=== PATIENT | male | born 1935 | race Caucasian/White ===

== ENCOUNTER 2021-07-28 08:42 | Day surgery (SDC) | payer OTHER, MEDICARE ==
[2021-07-23 17:29] LABS: Protime INR 1.02
[2021-07-23 17:31] LABS: Absolute Lymphocytes (CBC) 1.5 K/uL (0.7-4.9); Hematocrit 43.4 % (39.6-49.0); Lymphocytes % 18.7 % (15.3-44.8); RBC Red Blood Cell Count 4.77 M/uL (4.33-5.43)
--- NOTE | 2021-07-23 17:34 | RAD REPORT ---
EXAM DESCRIPTION: RAD - Chest Pa And Lat (2 Views) - 07/23/2021 5:23 pm CLINICAL HISTORY: PREOP, patient pending prostate surgery COMPARISON: None TECHNIQUE: Frontal and lateral views of the chest were obtained. FINDINGS: The lungs are underinflated. Interstitial markings are prominent with the baseline unknown . In the absence of acute respiratory symptoms this is most likely fibrosis. No significant failure o r volume overload suspected. Heart size is normal and central vasculature is within normal limits. No pleural effusion or pneu mothorax seen. No acute bony finding noted. Degenerative changes are present in the spine. Degenerat paz changes are present at the anterior margin of the right first rib. No aortic abnormality. IMPRESSION: No acute failure findings. No focal mass or consolidation. Shallow inspiration exam with prominent interstitial pattern. This is a baseline study and no acute r espiratory symptoms were detailed. 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
[2021-07-23 17:42] LABS: Potassium 3.8 mmol/L (3.5-5.1)
--- NOTE | 2021-07-24 10:05 | EKG ---
Test Date: 2021-07-23 Test Time: 16:56:53 Peeler Operator: JAKUB MEASUREMENT RESULTS: Intervals: Rate: 53 ND: 276 QRSD: 94 QT: 436 QTc: 409 Hodgen: P: 64 ND: 276 QRS: -10 T: -2 INTERPRETIVE STATEMENTS: Sinus bradycardia with 1st degree AV block Inferior infarct, age undetermined Abnormal ECG Compared to ECG 09/10/2019 15:53:22 Myocardial infarct finding now present Sinus arrhythmia no longer present Electronically Signed On 07-24-21 10:04:24 TERADATA DEVELOPER by Arik Shin
[~2021-07-28 08:42] MED LIST: AMPICILLIN SODIUM 2 GM in NA CHLORIDE 0.9% 100 ML IVPB SCH; Gentamicin Inj 160 MG in NA CHLORIDE 0.9% 100 ML IV SCH
[2021-07-28] MEDS ORDERED: Ringers Lactate 1,000 ML IV ONE (09:06)
[2021-07-28] MEDS ORDERED: FENTANYL CITR 100 MCG/2 ML ONE (10:15)
[2021-07-28] MEDS ORDERED: propofoL 200 MG/20 ML VIAL IV ONE (10:15)
[2021-07-28] MEDS ORDERED: ONDANSETRON 4 MG/2 ML VIAL ONE (10:15)
[2021-07-28] MEDS ORDERED: LIDOCAINE 1% MPF 5 ML VIAL ONE (10:16)
[2021-07-28] MEDS ORDERED: GLYCOPYRROLATE 0.2 MG/ML SYR ONE (10:58)
[2021-07-28] MEDS ORDERED: EPHEDRINE SULF 50 MG/ML VIAL ONE (10:58)
--- NOTE | 2021-07-28 13:26 | OP ---
Date of Procedure: 07/28/2021 Surgeon: KYAW OLIVARES Preoperative Diagnosis: Benign prostatic hypertrophy with urinary retention. Postoperative Diagnosis: Benign prostatic hypertrophy with urinary retention. Principal Procedure: Cystoscopy with transurethral resection of the prostate using the bipolar devic e. Indication For Procedure: Mr. Santillan is an 86-year-old gentleman with hypothyroidism, hypertension a nd BPH with lower urinary tract obstructive symptoms causing urinary retention requiring catheter margarito cement. He underwent urodynamics evaluation 06/16/2021 revealing detrusor instability with normal se nsation and mild dis-coordination associated with adequate detrusor contractility, but poor flow and cystoscopy revealing lateral lobar hypertrophy with elevated median bar and mild intravesical project ion. As a result, I counseled the patient on the weakness of his detrusor contractility and the pote ntial for dis-coordination of voiding with the striated sphincter, but to give him an opportunity to void, a transurethral resection of the prostate was as best opportunity. We also discussed potential ly adding finasteride, but that would take 6 months to 2 years and only had about a 55% to 65% chance of success. They elected to proceed with surgical therapy. The patient was consented in the preoperative holding area before being transferred to the operative suite where general anesthesia was induced. He was given ampicillin and gentamicin IV antimicrobial prophylaxis. Pneumo boots were provided for DVT prophylaxis. He was placed in the lithotomy positio n, padded and secured to the table appropriately. His genitalia were prepped using Hibiclens and he was draped in standard fashion. The case was begun using a 26-Egyptian Olympus bipolar resectoscope se t and a visual obturator to traverse the urethra and into the bladder. The bladder neck was noted to be significantly elevated with intravesical projection of the median lobe. As a result, I began by resecting the elevated median bar and any intravesically projecting component of the median lobe unti l it was even with the level of the bladder neck. I then continued the resection of the remainder of the median bar all the way down to the level of the verumontanum until a smooth trough had been crea penny. Once this was done, I continued the resection to include the left lateral lobe, initially start ing at the bladder neck and extending that resection to the midportion of the lateral lobar hypertrop hy toward the apex. I then continued the similar resection starting at the bladder neck on the right side. Eventually, with a nice open channel created from the mid prostate through the bladder neck, I then continued the resection to involve any apical overlapping hypertrophy of tissue proximal to th e verumontanum. Once that tissue was resected until the apical lobes were no longer touching, I then continued to smooth the resection and removed any and all excess tissue to create a nice smooth reynolds ritesh from the apex through to the bladder. Once done, all prostate chips were Ellik evacuated and rem radha, and a careful search for bleeding was undertaken. Any bleeding vessels were carefully fulgurat ed using the bipolar electrode, and with his bladder completely decompressed, fulguration of any oozi ng vessels was performed. Once completely hemostatic, I again reassessed the resection and ensured a nice smooth and wide-open trough, and once confirmed, with the bladder decompressed and no prostate chips left within, I fulgurated any residual oozing vessels before leaving the bladder full and remov ing the resectoscope. I then placed a 24-Egyptian 3-way White catheter into his bladder using a cathet er guide due to the elevation of the bladder neck, and placed 50 cc of sterile water in the balloon. The returning efflux was clear, and I started him on slow drip CBI with clear efflux of fluid. The patient was then taken out of the lithotomy position, awakened from general anesthesia, transferred t o a stretcher, and then transferred to the recovery room in good condition. Complications: None. Discharge Disposition: He should follow up in the [facility] on Tuesday for a voiding trial. Tania sue he have difficulty voiding, and a coude-tipped catheter should be reinserted, preferably 18 or 20-Egyptian. WR/MODL Voice ID: [id number] Report ID: [id number]
[2021-07-28] MEDS ORDERED: OPIUM/BELLADONNA SUPPOS (30-16.2 MG) PR ONE ×2 (13:38→13:43)
[2021-07-28] MEDS ORDERED: CODEINE 30MG/APAP 300MG TAB PO PRN (13:43)
[2021-07-28 14:17] VITALS: BP 145/75; TEMP 97.5; O2SAT 98
[2021-07-28] MEDS ORDERED: CODEINE 30MG/APAP 300MG TAB ONE (14:30)
== END 2021-07-28 15:10 | disposition home or self-care (01) ==
LOC: OR 08:42
PROVIDERS: ATTEND Urology
PROC: 0VT08ZZ Resection of Prostate, Via Natural or Artificial Opening Endoscopic (ICD-10-PCS; principal; 2021-07-28 10:00)
DX: N40.1 Benign prostatic hyperplasia with lower urinary tract symptoms (principal); N39.41 Urge incontinence; R33.9 Retention of urine, unspecified; N32.81 Overactive bladder; N36.44 Muscular disorders of urethra; Z20.822 Contact with and (suspected) exposure to COVID-19
CPT/HCPCS: 93005; 87088; 85025; 87086; 80048; 36415; 85610; 88305; 71046; 52630; U0003; J2704; J1580; J3010; J7120; J2405; J0290